=== PATIENT | female | born 1995 | race African-American/Black ===

== ENCOUNTER 2023-01-27 14:25 | Emergency (ER) | payer SELFPAY ==
--- NOTE | ~2023-01-27 | US_ITS ---
EXAMINATION: US pelvic complete w TV DATE: 01/27/2023 17:14 INDICATION: Pelvic pain TECHNIQUE: Multiple transabdominal and endovaginal sonographic images of the pelvis were obtained. COMPARISON: None. FINDINGS: The uterus measures 7.4 x 3.7 x 4.6 cm. An IUD is noted. The endometrial complex measures 5 mm. The right ovary measures 4.3 x 2.6 x 4.8 cm. The left ovary measures 3.3 x 2.8 x 3.5 cm. There i s normal vascular flow in the ovaries. There is no free fluid in the pelvis. IMPRESSION: 1. No sonographic correlate for the patient's symptoms. Reviewed, dictated and finalized at location F.
[2023-01-27 14:48] VITALS: BP 156/91; PULSE 98; RESP 18; TEMP 36.4; O2SAT 100
[2023-01-27 15:09] LABS: Appearance Urine Cloudy (Clear); Bacteria Urine 1+ /hpf; Bilirubin Urine Negative (Negative); Blood Urine Negative (Negative); Color Urine Yellow (Yellow); Glucose Urine UA Negative (Negative); Ketones Urine Negative (Negative); Leukocyte Esterase Ur Negative LEU/UL (Negative); Nitrate Urine Negative (Negative); Non Pathogenic Casts 0-2; Protein Urine Negative (Negative); Specific Grav Ur 1.025 (1.001-1.035); Squamous Epithelial Cell Urine Occasional /hpf (Few); WBC Urine 0-5 /hpf
[2023-01-27 15:15] LABS: Add Urine Microscopic? YES
[2023-01-27 15:42] LABS: Pregnancy On Board Control Positive; Urine Pregnancy Test Negative
--- NOTE | 2023-01-27 16:03 | ED.FEMALEGU ---
HPI - Female Genitourinary General Chief complaint: Urogenital-Female Stated complaint: UTI symptoms Time Seen by Provider: 01/27/23 15:34 Source: patient Mode of arrival: ambulatory Limitations: no limitations History of Present Illness HPI Narrative: This is a 27 year old female that presents to the ER for dysuria. Ongoing over the last couple of weeks. Reports dysuria, pelvic pain and urgency. Does report concern for possible STDs. Denies fever, vomiting or abnormal discharge. Related Data Allergies Allergy/AdvReac Type Severity Reaction Status Date / Time No Known Allergies Allergy Verified 01/27/23 15:19 Review of Systems Review of Systems: CONSTITUTIONAL: Denies fever GASTROINTESTINAL: Reports pelvic pain. Denies nausea, vomiting GENITOURINARY: Reports dysuria. Denies hematuria. All systems reviewed & are unremarkable except as noted in HPI and below PMFSH Past Medical History Medical History (Updated 01/27/23 @ 18:12 by Olena Lopez PA-C) No active medical problems Social History Social History (Updated 01/27/23 @ 17:34 by Olena Lopez PA-C) Substance use: never Exam Narrative: GENERAL: Well-appearing, obese, and in no acute distress. HEAD: Normocephalic, atraumatic. EYES: EOMI. CHEST: Clear to auscultation. No respiratory distress. No wheezes rales or rhonchi HEART: Regular rate and rhythm. No murmur heard. Normal peripheral pulses. ABDOMEN: Soft, nontender, nondistended, normal active bowel sounds. EXTREMITIES: Normal range of motion. No edema. SKIN: Warm, dry, no rash. NEURO: No focal deficits. Alert and oriented x3. PSYCH: Normal mood and affect PELVIC: Difficult due to body habitus. Small amount of white vaginal discharge. No CMT Course Course Emergency Course: Patient updated on workup and agrees with plan of care Vital Signs Vital signs: Vital Signs Temperature 97.6 F 01/27/23 14:48 Pulse Rate 98 01/27/23 14:48 Respiratory Rate 18 01/27/23 14:48 Blood Pressure 156/91 H 01/27/23 14:48 Pulse Oximetry 100 01/27/23 14:48 Oxygen Delivery Room Air 01/27/23 14:48 Temperature 97.6 F 01/27/23 14:48 Pulse Rate 98 01/27/23 14:48 Respiratory Rate 18 01/27/23 14:48 Blood Pressure 156/91 H 01/27/23 14:48 Pulse Oximetry 100 01/27/23 14:48 Oxygen Delivery Room Air 01/27/23 14:48 MDM - Female Genitourinary MDM Narrative Medical decision making narrative: Patient presents to the ER for pelvic pain and dysuria. Ongoing over the last couple of weeks. She is afebrile and nontoxic appearing. No concerning findings on exam. CBC is without leukocytosis. UA is not concerning for infection. Patient did report concern for possible STDs. Chlamydia, gonorrhea, and trichomonas negative. Genital culture sent. Pelvic ultrasound is normal. Patient was updated on workup and agrees with plan of care. Is to follow up with gynecology. She was given warnings to return to the ER Differential Diagnosis Differential diagnosis: Likely urinary tract infection, trichomoniasis, cervicitis, ovarian cyst, vaginitis, cystitis and dysmenorrhea Lab Data Attestation: I reviewed the patient's lab results. 01/27/23 17:06 01/27/23 17:06 Labs: Lab Results 01/27/23 01/27/23 01/27/23 Range/Units 14:55 16:13 17:06 WBC 8.0 (4.5-10.0) K/mm3 RBC 4.53 (4.2-5.4) M/mm3 Hgb 12.0 (12.0-15.0) g/dL Hct 38.6 (37.0-47.0) % MCV 85.2 (80-100) fl MCH 26.5 (26-34) pg MCHC 31.1 L (32-36) g/dl RDW 15.2 H (11.5-14.5) % Plt Count 357 (150-375) k/mm3 MPV 10.1 (7.4-10.4) fl Immature Gran % (Auto) 0.1 (0-0.5) % Neut % (Auto) 58.1 (45.5-73.1) % Lymph % (Auto) 34.2 (18.3-44.2) % [place] % (Auto) 6.1 (2.6-8.5) % Eos % (Auto) 1.1 (0-4.4) % Baso % (Auto) 0.4 (0.2-1.2) % Lymph # (Auto) 2.73 (0.9-3.2) K/mm3 [place] # (Auto) 0.5 (0.1-0.6) K/mm3 Eos # (Auto) 0.1 (0-0.3) K/m
[2023-01-27 17:13] LABS: Basophils Percent Auto 0.4 % (0.2-1.2); Eosinophils Absolute Auto 0.1 K/mm3 (0-0.3); Eosinophils Percent Auto 1.1 % (0-4.4); Hematocrit 38.6 % (37.0-47.0); Immature Granulocyte Absolute 0.01 K/mm3 (0.00-0.031); Immature Granulocyte Percent A 0.1 % (0-0.5); Lymphocytes Absolute Auto 2.73 K/mm3 (0.9-3.2); Lymphocytes Percent Auto 34.2 % (18.3-44.2); Mean Corpuscular HGB Conc 31.1 g/dl (32-36); Mean Corpuscular Hemoglobin 26.5 pg (26-34); Mean Corpuscular Volume 85.2 fl (80-100); Mean Platelet Volume 10.1 fl (7.4-10.4); Monocytes Absolute Auto 0.5 K/mm3 (0.1-0.6); Monocytes Percent Auto 6.1 % (2.6-8.5); Neutrophils Absolute Auto 4.6 K/mm3 (1.3-6.7); Neutrophils Percent Auto 58.1 % (45.5-73.1); Platelet Count Result 357 k/mm3 (150-375); Red Blood Count 4.53 M/mm3 (4.2-5.4); Red Cell Distribution Width 15.2 % (11.5-14.5)
[2023-01-27 17:24] LABS: Trichomonas Vag PCR NOT DETECTED (NOT DETECTE)
[2023-01-27 17:24] LABS: Anion Gap 8 mmol/L (8-16); Blood Urea Nitrogen 11 mg/dL (7-17); Calcium 9.2 mg/dL (8.4-10.2); Carbon Dioxide 28 mmol/L (22-30); Chloride 104 mmol/L (98-107); Estimated CRCL calculation 133 ml/min; Estimated Glomerular Filt Rate > 60; Glucose 92 mg/dL (65-110); Potassium 3.6 mmol/L (3.4-5.0); Sodium 140 mmol/L (137-145)
[2023-01-27 17:49] LABS: Chlamydia trachomatis NOT DETECTED (NOT DETECTE); Neisseria gonorrhoeae PCR NOT DETECTED (NOT DETECTE)
== END 2023-01-27 18:23 | disposition home or self-care (01) ==
PROVIDERS: Emergency Medicine; Emergency Provider Physician Assistant
DX: R30.0 Dysuria (principal); R10.2 Pelvic and perineal pain
CPT/HCPCS: 36415; 76830; 76856; 80048; 81001; 81025; 85025; 87070; 87491; 87591; 87661; 99284